=== PATIENT | male | born 1985 | race Hispanic/Latino ===

== ENCOUNTER 2021-01-07 10:15 | Emergency (ER) | payer OTHER ==
[~2021-01-07] VITALS: Ht 185.4 cm; Wt 113.4 kg
[2021-01-07 10:16] VITALS: BP 140/90
[2021-01-07 11:22] VITALS: BP 135/86
[2021-01-07] MEDS ORDERED: KETOROLAC 30MG VIAL (30MG/ML) IV SCH (12:00)
== END 2021-01-07 14:01 | disposition left against medical advice (07) ==
LOC: EDH 10:15
DX: M54.5 Low back pain (principal); Z79.1 Long term (current) use of non-steroidal anti-inflammatories (NSAID); Z90.49 Acquired absence of other specified parts of digestive tract; W01.0XXA Fall on same level from slipping, tripping and stumbling without subsequent striking against object, initial encounter; Y93.89 Activity, other specified; Y92.89 Other specified places as the place of occurrence of the external cause; Y99.8 Other external cause status
CPT/HCPCS: 96374; 99283; J1885